=== PATIENT | female | born 1990 | race African-American/Black ===

== ENCOUNTER 2018-02-26 20:30 | Emergency (ER) | payer MEDICAID | END 2018-02-26 22:23 | disposition left against medical advice (07) | LOC: ERS 20:30 | DX: Z53.21 Procedure and treatment not carried out due to patient leaving prior to being seen by health care provider (principal) ==

== ENCOUNTER 2018-10-01 20:45 | Emergency (ER) | payer MEDICAID, OTHER ==
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
--- NOTE | 2018-10-01 22:54 | RAD ---
LEFT ANKLE THREE VIEWS: History: Fall. Pain. Comparison: None. FINDINGS: No acute fracture or malalignment. No significant joint effusion. Low grade enthesopathic changes of the superficial portion of the deltoid ligament, likely an old inj ury given the lack of adjacent soft tissue swelling. No lateral talar shift. IMPRESSION: No acute abnormality. POS: [facility]
== END 2018-10-01 21:45 | disposition home or self-care (01) ==
LOC: ERS 20:45
DX: M25.572 Pain in left ankle and joints of left foot (principal); F17.210 Nicotine dependence, cigarettes, uncomplicated; W01.0XXA Fall on same level from slipping, tripping and stumbling without subsequent striking against object, initial encounter

== ENCOUNTER 2018-10-08 15:43 | Emergency (ER) | payer OTHER | END 2018-10-08 17:40 | disposition home or self-care (01) | LOC: ERS 15:43 | DX: J20.9 Acute bronchitis, unspecified (principal); J42 Unspecified chronic bronchitis; F17.210 Nicotine dependence, cigarettes, uncomplicated | CPT/HCPCS: 99283 ==

== ENCOUNTER 2018-11-15 15:10 | Emergency (ER) | payer OTHER ==
[2018-11-15] MEDS ORDERED: Adacel (T-DAP) 0.5 ML SYRINGE ONE (15:35)
[2018-11-15] MEDS ORDERED: Morphine 4 MG/ML VIAL ONE (15:35)
[2018-11-15] MEDS ORDERED: Ondansetron PF 4 MG/2 ML Vial ONE (15:35)
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
== END 2018-11-15 16:59 | disposition home or self-care (01) ==
LOC: ERS 15:10
DX: S06.0X9A Concussion with loss of consciousness of unspecified duration, initial encounter (principal); S00.83XA Contusion of other part of head, initial encounter; M25.561 Pain in right knee; F17.210 Nicotine dependence, cigarettes, uncomplicated; V43.62XA Car passenger injured in collision with other type car in traffic accident, initial encounter
CPT/HCPCS: 70450; 72125; 90471; 90715; 96374; 96375; G0390; J2270; J2405

== ENCOUNTER 2018-11-16 17:28 | Emergency (ER) | payer OTHER | END 2018-11-16 18:29 | disposition home or self-care (01) | LOC: ERS 17:28 | DX: S05.12XA Contusion of eyeball and orbital tissues, left eye, initial encounter (principal); S05.11XA Contusion of eyeball and orbital tissues, right eye, initial encounter; F17.210 Nicotine dependence, cigarettes, uncomplicated; V49.9XXA Car occupant (driver) (passenger) injured in unspecified traffic accident, initial encounter | CPT/HCPCS: 99283 ==

== ENCOUNTER 2019-08-27 00:56 | Emergency (ER) | payer OTHER ==
[2019-08-27] MEDS ORDERED: Lidocaine 1% w/Epinephrine 1:100K 20 ML VIAL ONE (01:37)
== END 2019-08-27 02:08 | disposition home or self-care (01) ==
LOC: ERS 00:56
DX: N76.4 Abscess of vulva (principal); F17.210 Nicotine dependence, cigarettes, uncomplicated; Z71.6 Tobacco abuse counseling
CPT/HCPCS: 56405; 99406